=== PATIENT | male | born 1975 | race Two or more races ===

== ENCOUNTER 2023-08-02 09:06 | Emergency (ER) | payer OTHER ==
[~2023-08-02] VITALS: Ht 171.4 cm; Wt 64.4 kg
== END 2023-08-02 11:24 | disposition home or self-care (01) ==
LOC: ER 09:06
DX: B76.9 Hookworm disease, unspecified (principal)

== ENCOUNTER 2024-04-25 11:53 | Outpatient (CLI) | payer OTHER | END 2024-04-25 12:15 | disposition home or self-care (01) | LOC: SONOGRAMA 11:53 | PROVIDERS: ATTEND Physical Medicine & Rehabilitation Hospice and Palliative Medicine | DX: M25.511 Pain in right shoulder (principal); M75.31 Calcific tendinitis of right shoulder ==

== ENCOUNTER 2024-05-14 14:41 | Outpatient (CLI) | payer OTHER | END 2024-05-14 14:53 | disposition home or self-care (01) | LOC: RAD 14:41 | PROVIDERS: ATTEND Specialist | DX: M51.34 Other intervertebral disc degeneration, thoracic region (principal); M51.36 Other intervertebral disc degeneration, lumbar region; M62.830 Muscle spasm of back ==

== ENCOUNTER 2024-05-15 11:37 | Outpatient (CLI) | payer OTHER | END 2024-05-15 11:42 | disposition home or self-care (01) | LOC: MRI 11:37 | PROVIDERS: ATTEND Specialist | DX: M54.50 Low back pain, unspecified (principal); M51.36 Other intervertebral disc degeneration, lumbar region; M62.830 Muscle spasm of back | CPT/HCPCS: 72148 ==

== ENCOUNTER 2025-06-24 10:51 | Emergency (ER) | payer OTHER ==
[~2025-06-24] VITALS: Ht 170.2 cm; Wt 65.8 kg
[2025-06-24] MEDS ORDERED: KETOROLAC TROMETHAMINE 30 MG VIAL IM ONE (16:00)
[2025-06-24] MEDS ORDERED: CETIRIZINE HCL 5 MG/5 ML ML PO ONE (16:00)
[2025-06-24] MEDS ORDERED: KETOROLAC TROMETHAMINE 30 MG VIAL ONE (16:21)
[2025-06-24] MEDS ORDERED: CETIRIZINE HCL 5MG/5ML BLIST.PACK PO ONE (16:22)
[2025-06-24] MEDS ORDERED: ALBENDAZOLE200 MG PO (17:09)
== END 2025-06-24 18:00 | disposition home or self-care (01) ==
LOC: ER 10:52
DX: S90.862A Insect bite (nonvenomous), left foot, initial encounter (principal); W57.XXXA Bitten or stung by nonvenomous insect and other nonvenomous arthropods, initial encounter; Y93.89 Activity, other specified; Y92.832 Beach as the place of occurrence of the external cause; M19.90 Unspecified osteoarthritis, unspecified site; F41.8 Other specified anxiety disorders; B76.9 Hookworm disease, unspecified